=== PATIENT | female | born 1945 | race Caucasian/White ===

== ENCOUNTER 2017-01-25 06:30 | Inpatient (IN) ==
[2017-01-25] MEDS ORDERED: Albuterol 2.5 MG/3 ML NEBULIZER IH ONE (06:44)
[2017-01-25] MEDS ORDERED: CeFAZolin Pre 2,000 MG/100 ML 2,000 MG/100 ML BAG IVPB ONE (06:44)
[2017-01-25] MEDS ORDERED: Lidocaine -MPF 4% 5 ML AMPUL ONE (06:54)
[2017-01-25] MEDS ORDERED: *HR* Phenylephrine 10 MG/ML VIAL ONE (06:54)
[2017-01-25] MEDS ORDERED: EPHEDrine 50 MG/ML VIAL ONE (07:01)
[2017-01-25] MEDS ORDERED: *HR* Heparin 5,000 UNIT/ML VIAL ONE ×2 (07:02→11:30)
[2017-01-25] MEDS ORDERED: *HR* FentaNYL (PF) 100 MCG/2 ML VIAL ONE (07:06)
[2017-01-25] MEDS ORDERED: *HR* Propofol 200 MG/20 ML VIAL IVP ONE (07:06)
[2017-01-25] MEDS ORDERED: Lidocaine -MPF 2% 2 ML VIAL ONE ×2 (07:07→07:10)
[2017-01-25] MEDS ORDERED: *HR* Rocuronium Bromide 50 MG/5 ML VIAL ONE (07:07)
[2017-01-25] MEDS ORDERED: Dexamethasone 4 MG/ML VIAL ONE (07:07)
[2017-01-25] MEDS ORDERED: Ondansetron 4 MG/2 ML VIAL ONE (07:07)
[2017-01-25] MEDS ORDERED: *HR* Remifentanil 2 MG VIAL IVP ONE (07:12)
[2017-01-25] MEDS: Ringers Solution, Lactated 1,000 ML IVC SCH ×2 (07:18→09:59)
[2017-01-25] MEDS ORDERED: Heparin 1,000 UNITS/500 mL NS 1,000 ML ONE (07:21)
[2017-01-25] MEDS ORDERED: Heparin 1,000 UNITS/500 mL NS 500 ML ONE (07:24)
--- NOTE | 2017-01-25 07:31 | History & Physical Report ---
Date of Encounter: 01/25/17 Time of Encounter: 07:30 24 Hour HP Update - Instructions Instructions: If the History and Physical is less than 30 days old and was completed prior to A.M. admission and or procedure and has NOT been updated on calendar day of procedure please complete this update prior to performing procedure. - Update Patient reports changes in Medical Condition: No Changes in examination, assessment, or condition: No Changes in Medication: No Preop tests/diagnostics Reviewed: Yes Surgery Remains Indicated: Yes Consent for Planned Operative Procedure(s) Verified: Yes - Pre-Operative Checklist Preoperative Checklist Indicated: Yes Prophylactic Antibiotic Ordered: Yes Home Medications Include Beta Melvin: No Beta Melvin Taken Today (Day of Surgery): No Beta Melvin Taken Yesterday (Day Prior to Surgery): No Is VTE Prophylaxis Indicated?: Yes
[2017-01-25] MEDS ORDERED: *HR* Midazolam HCl 2 MG/2 ML VIAL ONE (07:33)
--- NOTE | 2017-01-25 07:38 | Anesthesia Evaluation PreOp ---
Date of Encounter: 01/25/17 Time of Encounter: 07:35 - Past History Planned Operation: Left fem bypass Cardiac History: HTN, Hyperlipidemia Pulmonary History: Smoker, Snore (minimal snoring) [employer] History: Denies Any Significant HX Other Medical History: Denies Any Significant HX Anesthesia History: No Prior Anesthetic Complications, Past Anesthesia Alcohol Use: none Drug use: none Medications and Allergies Calcium Cit Malate/Vitamin D3 [Calcium Citrate Malate with D] 1 each PO DAILY [History] Clopidogrel [Plavix] 75 mg PO DAILY 01/14/16 [History] [place]-3/Dha/Epa/Fish Oil [Fish Oil 1,000 mg Softgel] 2 tab PO BID 01/14/16 [ History] cloNIDine HCl [CloNIDine HCl] 0.1 mg PO BID 01/14/16 [History] Aspirin [Lo-Dose Aspirin EC] 81 mg PO DAILY 01/05/17 [History] Allergies No Known Allergies Allergy (Verified 01/14/16 09:07) - Meds/Allergy Pre-op Review Medications Reviewed: Yes Allergies Reviewed: Yes Beta Blockers on Current Med List: No Anesthesia Results - Labs Laboratory Tests 12/28/16 12/28/16 12/28/16 08:33 08:33 08:33 WBC 10.8 Hgb 14.2 Hct 42.1 Plt Count 260 PT 11.6 INR 1.1 Sodium 136 Potassium 4.1 Chloride 105 Carbon Dioxide 23 BUN 18 Creatinine 0.83 - Imaging EKG: report reviewed Anesthesia Exam Selected Entries 01/25/17 07:06 Temperature 97.7 F Pulse Rate 78 Respiratory Rate 18 Blood Pressure 148/71 O2 Sat by Pulse Oximetry 95 - HEENT Pupil (Motor): Pupils equal Mallampati: I Teeth: Edentulous Oral Opening: Greater than 3 - Cardiac Rhythm: Regular Murmur: None - Pulmonary Breath Sounds: bilateral Clear Anesthesia Assess/Plan ASA Score: 3 Modified Federico Scale for Level of Consciousness: Cooperative, oriented, and tranquil Anesthetic Plan: General Monitoring Plan: Standard Monitors, A-Line Recovery Plan: PACU
--- NOTE | 2017-01-25 09:04 | Anesthesia Procedures ---
Date of Encounter: 01/25/17 Time of Encounter: 07:45 Procedures: Anesthesia - Arterial Line Consent obtained: verbal consent Time out performed: Yes Sedation: Versed (mg): 2 Sedation: Fentanyl (mcg): 50 Supplemental Oxygen via Nasal Cannula (L/min): 2 Local Anesthetic: Other (2% lido) Amount of Anesthetic used (mls): 0.5 Size (Gauge): 20 Length (inches): 1 3/4 Technique Used: sterile prep, guide wire technique Post-Procedure: line taped into place Patient tolerated procedure: well Complications: none Site: Radial L Vitals: Vital Signs/O2 Sat/Glucose, Most Recent Temp Pulse Resp BP Pulse Ox 97.7 F 68 17 140/62 97 01/25/17 07:06 01/25/17 07:43 01/25/17 07:43 01/25/17 07:43 01/25/17 07:43 Blood Glucose* 113 Comments: [facility]
[2017-01-25] MEDS ORDERED: Ondansetron 4 MG/2 ML VIAL IVP ONE (09:05)
[2017-01-25] MEDS ORDERED: *HR* Labetalol 20 MG/4 ML SYRINGE IVP PRN (09:05)
[2017-01-25] MEDS ORDERED: Dexamethasone 4 MG/ML VIAL IVP ONE (09:05)
[2017-01-25] MEDS ORDERED: *HR* Morphine 2 MG/ML SYRINGE IVP PRN ×3 (09:05→13:35)
[2017-01-25] MEDS ORDERED: *HR* Morphine 10 MG/ML VIAL ONE ×2 (12:01→12:10)
[2017-01-25] MEDS ORDERED: *HR* Labetalol 20 MG/4 ML SYRINGE IVP ONE (12:11)
--- NOTE | 2017-01-25 12:31 | Operative Note ---
Date of procedure: 01/25/17 Pre-op diagnosis: left leg claudication/PAD Post-op diagnosis: same Procedure: left femoral-AK popliteal bypass graft with 6 mm Distaflo PTFE left common femoral endarterectomy Complications: none Anesthesia: GETA Surgeon: Miquel Griggs Estimated blood loss (cc): 200 Specimen: none Condition: stable Disposition: PACU Procedure in Detail: History Iraida Hensley is a 72-year-old white female with a history of many years of lower extremity vascular disease. She has abnormal physical exam and abnormal noninvasive vascular testing. She has undergone previous angiograms and bilateral lower extremity endovascular interventions. The patient had recurrence of her symptoms worse on the left side than on the right. She was taken to the angiogram suite and the left superficial femoral artery is occluded. Attempts at endovascular intervention did not restore patency to the artery and she now comes for direct surgical reconstruction. Of note the patient has a single-vessel tibial runoff via the peroneal artery on the left side. Procedure The patient was taken from the holding area to the operating room after consent was verified. General endotracheal anesthesia was established. The left lower extremity was sterilely prepped and draped. A timeout protocol was observed. Arterial line was placed. The left groin was opened and exploration was made down to the femoral bifurcation. The common femoral artery had dense calcific plaque with marked reduction in the pulsatility. The superficial femoral artery was also severely diseased. Controls obtained of these vessels. Dissection was made up to the very distal aspect of the external iliac artery in order to find a soft portion of the vessel to achieve vessel loop control of the inflow. Then using interrupted incisions along the medial aspect of the left thigh the greater saphenous vein was identified and explored. The initial portion revealed an excellent greater saphenous vein. However on dissection distally the vein had multiple branches and became very small and unusable as a bypass graft conduit. Therefore the saphenous vein was not harvested was left in position. It was rejected as a conduit and a 6 mm PTFE Distaflo small cuff was selected in its place. A subsartorial tunnel was created. The above-knee popliteal artery and at the knee popliteal artery was dissected. The vessel at this point was normal in diameter and demonstrated mild to moderate disease by palpation. 5000 units heparin were then administered intravenously. After observing a three-minute delay the vessels were clamped at the popliteal level. A longitudinal incision was made with 11 blade knife and extended with Gordon scissors. Moderate plaque formation was found but did not appear to be obstructive to the point that an endarterectomy was necessary. Then using the fluted end of the Distaflo graft and end of graft to side of artery anastomosis was created with 6-0 Prolene. After this was secured to the graft was clamped and the vessel loops were removed from the [place] vessel. The graft which had been previously tunneled through a subsartorial tunnel was then prepared for the proximal anastomosis. The common femoral artery was opened. As expected there was dense calcific disease. This then required a formal endarterectomy. Using a septal dissector the calcific plaque of the wall of the vessel was then dissected circumferentially for the length of the common femoral artery. The orifice of the profunda femoris artery was also endarterectomized. As the superficial femoral artery was occluded it was not manipulated further. Excellent back flow from the profunda femoris artery was documented and this vessel was flushed with heparinized saline. After having completed this formal common femoral artery endarterectomy attention was then directed to creating the proximal anastomosis. The graft was then cut to size and an end of graft to side of artery anastomosis with 6-0 Prolene suture was then performed. After appropriate backbleeding and flushing the graft was opened. Excellent pulsatile flow was documented through the graft into the popliteal artery. Doppler signals are identified over the dura [place] pedis and peroneal artery at the left ankle. All the incisions were then irrigated and hemostasis achieved. The wounds were closed in layers using absorbable suture. Estimated blood loss is 200 mL. There are no intraoperative complications. The patient was x-rayed in the operating room and taken to the recovery room in stable condition with a warm pink left foot.
--- NOTE | 2017-01-25 13:07 | Anesthesia Evaluation Post Op ---
Date of Encounter: 01/25/17 Time of Encounter: 13:07 - Vital Signs Vital Signs: Vital Signs/O2 Sat, Most Current Temp Pulse Resp BP Pulse Ox 97.5 F L 89 14 133/67 97 01/25/17 12:42 01/25/17 12:52 01/25/17 12:52 01/25/17 12:52 01/25/17 12:52 - Lungs Lungs: Clear Ascult./Percussion - Airway Airway: Non-obstructed - Cardiovascular Regular Rate - Mental Status Mental Status: Alert & Oriented, Answers Appropriately - Pain Pain Scale: 1 Pain Scale used: Numeric (1 - 10) - Nausea Vomiting Nausea Vomiting: Not Present - Hydration Hydration: Ice chips, Walker catheter - Discharge PostOp Status: Transfer Patient to floor
[2017-01-25] MEDS ORDERED: Ondansetron 4 MG/2 ML VIAL IVP PRN (13:35)
[2017-01-25] MEDS ORDERED: Acetaminophen 325 MG TABLET PO PRN (13:35)
[2017-01-25] MEDS ORDERED: Naloxone 0.4 MG/ML INJ IVP PRN (13:35)
[2017-01-25] MEDS: cloNIDine HCl 0.1 MG TABLET PO SCH ×2 (16:15→19:39)
[2017-01-25] MEDS: ceFAZolin 2,000 MG in D5% in Water 100 ML IVPB SCH (16:16)
[2017-01-25] MEDS: (Omega-3/Dha/Epa/Fish Oil [Fish Oil 1,000 Mg Softgel]) PO SCH (19:40)
[2017-01-26] MEDS: ceFAZolin 2,000 MG in D5% in Water 100 ML IVPB SCH ×2 (00:23→06:59)
[2017-01-26 04:44] LABS: Basophils % 0.1 %; Eosinophils % 0.1 %; Hematocrit 28.8 % (35.3-44.9); Hemoglobin 9.8 g/dL (11.5-15.4); Immature Granulocytes % 0.4 % (0-4); Lymphocytes % 22.4 %; Mean Corpuscular Hemoglobin 30.9 pg (28.0-33.3); Mean Corpuscular Volume 90.9 fL (83.0-100.0); Mean Platelet Volume 10.6 fL (9.4-12.4); Monocytes # 1.2 K/mcL (0.0-1.3); Monocytes % 9.2 %; Neutrophils # 9.1 K/mcL (1.6-8.9); Platelet Count 229 K/mcL (140-400); Red Blood Count 3.17 M/mcL (3.82-4.97); Red Cell Distribution Width 14.3 % (11.5-14.5); Segmented Neutrophils % 67.8 %
[2017-01-26 04:59] LABS: BUN/Creatinine Ratio 21 (6-26); Blood Urea Nitrogen 15 mg/dL (7-20); Calcium 8.4 mg/dL (8.6-10.8); Carbon Dioxide 24 mEq/L (19-29); Chloride 105 mEq/L (98-109); Glucose 137 mg/dL (70-99); Osmolality,Calculated 281 (280-300); Potassium 4.4 mEq/L (3.5-4.5); Sodium 134 mEq/L (136-145); eGFR For African Americans > 60 (> 60); eGFR For Non-African Americans > 60 (> 60)
[2017-01-26] MEDS: cloNIDine HCl 0.1 MG TABLET PO SCH ×2 (08:06→16:23)
[2017-01-26] MEDS: (Omega-3/Dha/Epa/Fish Oil [Fish Oil 1,000 Mg Softgel]) PO SCH (08:07)
[2017-01-26] MEDS ORDERED: Multivit/Ca/Min/Fe/FA 1 TAB TABLET PO SCH (09:00)
[2017-01-26] MEDS ORDERED: Cholecalciferol (D-3) 1,000 UNIT TABLET PO SCH (09:00)
[2017-01-26] MEDS: *HR* HYDROcodone/Acet 5/325 mg TABLET PO PRN ×2 (11:06→16:23)
[2017-01-26 14:55] VITALS: BP 136/57
--- NOTE | 2017-01-26 15:42 | Discharge Summary ---
Date of Encounter: 01/26/17 Time of Encounter: 15:39 - Discharge Diagnosis (1) PAD (peripheral artery disease) Priority: Primary Status: Chronic Comments: The patient has a long history of lower extremity vascular occlusive disease. She has had previous interventions endovascularly. She denies recurrent disease. This now requires bypass grafting. The patient was admitted for left femoral-popliteal bypass graft. Patient also had endarterectomy of the left common femoral artery. Patient had uneventful course. She was felt fit for discharge and postoperative day #1. - Discharge Medications Home Medications: Calcium Cit Malate/Vitamin D3 [Calcium Citrate Malate with D] 1 each PO DAILY [History] Clopidogrel [Plavix] 75 mg PO DAILY 01/14/16 [History] [place]-3/Dha/Epa/Fish Oil [Fish Oil 1,000 mg Softgel] 2 tab PO BID 01/14/16 [ History] cloNIDine HCl [CloNIDine HCl] 0.1 mg PO TID 01/14/16 [History] Mv,Fe,Min/Lutein [A Thru Z [employer]'s Tablet] 1 tab PO DAILY 01/25/17 [ History] Allergies/Adverse Reactions: Allergies No Known Allergies Allergy (Verified 01/25/17 08:19) Date of admission: 01/25/17 13:30 Primary care physician: Ana Paula Norton DO Consults: None Procedure(s) Performed: Left femoral to [id number] popliteal artery bypass graft with 6 mm PTFE and left common femoral artery endarterectomy Discharging clinician: Miquel Griggs Anticipated date of discharge: 01/26/17 - Patient Status Disposition: Home, Self-Care Condition: Good Functional capacity at discharge: independent ambulation Overall status at discharge: patient is progressing back to baseline - Discharge Instructions Follow Up With: Ginny Winslow CNP [Advanced Practice Nurse] - 02/01/17 11:00 am Miquel Griggs MD [Partnered Physician] - 02/14/17 2:45 pm Additional Instructions: Keep left lower extremity surgical incisions dry for total of 5 days following surgery. Keep left lower extremity elevated while seated. Resume usual home medications. No automobile driving or lifting more than 10 pounds. No manual labor. The patient is encouraged to ambulate as much as possible and may do stairs as tolerated. Patient may walk inside and outside as tolerated. Patient is to follow-up with Dr. Griggs in 2 weeks. - Diet and Activity Activity: increase activity as tolerated Diet: advance to your usual diet - Hospital Course Hospital course: Ms. Hensley is a 72 year old female Was admitted for elective left femoral popliteal bypass graft for chronic lower extremity occlusive disease. Patient uneventful operation. She tolerated the procedure well. She had excellent Doppler signals in her left foot. Left foot was warm and pink postoperatively. She was able to ambulate. She was felt fit for discharge on the afternoon of postoperative day #1. Instructions were given in regards to her diet and exercise and activities as well as her medications and wound care. - Time Spent with Patient Total time spent providing and/or coordinating discharge services: Exam Vital Signs, Last 4 Hours Temp Pulse Resp BP Pulse Ox 01/26/17 14:00 80 17 136/57 99 01/26/17 12:30 97.9 F General: Present: Conversant, No Apparent Distress HEENT: Present: Atraumatic Neck: Absent: JVD Cardiac: Present: Reg Rate and Rhythm Vascular: Present: Surgical incisions (Clean and dry), Other (The patient has Doppler signals 3 at the left ankle. The left foot and toes are warm and pink with less than 2 second capillary refill.) Skin: Present: No rashes noted on visualized skin - VTE Documentation of Mechanical Device: Intermittent pneumatic compression device
== END 2017-01-26 16:45 | disposition home or self-care (01) | DRG 254 ==
LOC: SAMDAY 06:30 → ICNU 13:30
PROVIDERS: ADMIT Surgery Vascular Surgery; ATTEND Surgery Vascular Surgery

== ENCOUNTER 2019-08-05 09:44 | Inpatient (IN) ==
[2019-08-05] MEDS ORDERED: Albuterol 2.5 MG/3 ML NEBULIZER IH PRN (10:07)
[2019-08-05] MEDS ORDERED: CeFAZolin Syr 2,000MG/20 ML 2,000 MG/20 ML SYRINGE IVPB ONE (10:07)
[2019-08-05] MEDS ORDERED: Ringers Solution, Lactated 1,000 ML IVC SCH (10:15)
[2019-08-05] MEDS ORDERED: Dexamethasone 4 MG/ML VIAL ONE (10:39)
[2019-08-05] MEDS ORDERED: *HR* Succinylcholine 200 MG/10 ML VIAL IVP ONE (10:39)
[2019-08-05] MEDS ORDERED: Lidocaine -MPF 2% 2 ML VIAL ONE ×3 (10:39→13:37)
[2019-08-05] MEDS ORDERED: Ondansetron 4 MG/2 ML VIAL ONE ×2 (10:39→12:46)
[2019-08-05] MEDS ORDERED: *HR* Propofol 200 MG/20 ML VIAL IVP ONE (10:39)
[2019-08-05] MEDS ORDERED: *HR* FentaNYL (PF) 100 MCG/2 ML VIAL ONE (10:39)
[2019-08-05] MEDS ORDERED: NiCARdipine 2.5 MG/10 ML Syringe IVPB ONE (10:42)
[2019-08-05] MEDS ORDERED: *HR* HYDROmorphone (PF) 1 MG/ML SYRINGE IVP PRN (10:48)
[2019-08-05] MEDS ORDERED: *HR* Remifentanil 1 MG VIAL IVP ONE ×2 (10:48→13:51)
[2019-08-05] MEDS ORDERED: *HR* Phenylephrine 10 MG/ML VIAL ONE (10:48)
[2019-08-05] MEDS ORDERED: Ondansetron 4 MG/2 ML VIAL IVP ONE (10:48)
[2019-08-05] MEDS ORDERED: *HR* OxyCODONE Immed Rel 5 MG TABLET PO PRN (10:48)
[2019-08-05] MEDS ORDERED: Acetaminophen IV 1,000 MG/100 ML INFUS..BTL ONE (11:13)
[2019-08-05] MEDS ORDERED: Heparin 1,000 UNITS/500 mL 500 ML ONE ×2 (11:19→11:25)
[2019-08-05] MEDS ORDERED: Lidocaine 1% 20 ML MDV ONE (11:25)
[2019-08-05] MEDS ORDERED: Lidocaine HCL 4 ML Topical Solution (Laryng-O-Jet Kit Sterile Pak) TP ONE (11:25)
[2019-08-05] MEDS ORDERED: ceFAZolin 1,000 MG, Sodium Chloride IRRigation 1,000 ML IR ONE (11:35)
[2019-08-05] MEDS ORDERED: EPHEDrine 50 MG/ML VIAL ONE (12:14)
[2019-08-05] MEDS ORDERED: *HR* Heparin 5,000 UNIT/ML VIAL ONE (12:33)
[2019-08-05] MEDS ORDERED: Esmolol 100 MG/10 ML VIAL IVP ONE (13:38)
[2019-08-05] MEDS ORDERED: *HR* Labetalol 20 MG/4 ML SYRINGE IVP ONE (15:28)
[2019-08-05] MEDS: *HR* Labetalol 20 MG/4 ML SYRINGE IVP PRN ×6 (15:29→18:59)
[2019-08-05] MEDS ORDERED: Acetaminophen 325 MG TABLET PO PRN (16:30)
[2019-08-05] MEDS ORDERED: Ondansetron 4 MG/2 ML VIAL IVP PRN (16:30)
[2019-08-05] MEDS ORDERED: *HR* HYDROcodone/Acet 5/325 mg TABLET PO PRN (16:30)
[2019-08-05] MEDS ORDERED: Naloxone 0.4 MG/ML INJ IVP PRN (16:30)
[2019-08-05] MEDS ORDERED: cloNIDine HCl 0.1 MG TABLET PO ONE (17:15)
[2019-08-05] MEDS ORDERED: cloNIDine HCl 0.1 MG TABLET ONE (17:18)
[2019-08-05] MEDS: cloNIDine HCl 0.1 MG TABLET PO SCH ×2 (17:24→20:55)
[2019-08-05] MEDS ORDERED: NON-FORMULARY MEDICATION 1 EACH EACH (Omega-3/Dha/Epa/Fish Oil [Fish Oil 1,000 Mg Softgel] PO SCH (21:00)
[2019-08-06 05:21] LABS: Hematocrit 32.4 % (35.3-44.9); Hemoglobin 10.7 g/dL (11.5-15.4); Mean Corpuscular Hemoglobin 30.1 pg (28.0-33.3); Mean Platelet Volume 10.5 fL (9.4-12.4); Platelet Count 242 K/mcL (140-400); Red Blood Count 3.56 M/mcL (3.82-4.97); Red Cell Distribution Width 13.3 % (11.5-14.5); White Blood Count 13.3 K/mcL (4.3-11.1)
[2019-08-06 05:43] LABS: BUN/Creatinine Ratio 20 (6-26); Blood Urea Nitrogen 16 mg/dL (8-23); Calcium 9.1 mg/dL (8.6-10.3); Carbon Dioxide 22 mEq/L (23-29); Chloride 105 mEq/L (98-107); Glucose 130 mg/dL (70-105); Osmolality,Calculated 291 (280-300); Potassium 4.4 mEq/L (3.5-5.1); Sodium 139 mEq/L (136-145); eGFR For African Americans > 60 (> 60); eGFR For Non-African Americans > 60 (> 60)
[2019-08-06] MEDS: cloNIDine HCl 0.1 MG TABLET PO SCH (08:19)
[2019-08-06] MEDS ORDERED: Multivit/Ca/Min/Fe/FA 1 TAB TABLET PO SCH (09:00)
[2019-08-06] MEDS ORDERED: Cholecalciferol (D-3) 1,000 UNIT (25MCG) TABLET PO SCH (09:00)
[2019-08-06 11:33] VITALS: BP 195/75
== END 2019-08-06 13:55 | disposition home or self-care (01) | DRG 39 ==
LOC: SAMDAY 09:44 → 2NNU 16:30
PROVIDERS: ADMIT Surgery Vascular Surgery; ATTEND Surgery Vascular Surgery